=== PATIENT | male | born 1960 | race Caucasian/White ===

== ENCOUNTER 2023-03-31 06:31 | Day surgery (SDC) | payer BC ==
[~2023-03-31] VITALS: Ht 182.9 cm; Wt 93.4 kg
[2023-03-31 07:58] VITALS: O2SAT 100
[2023-03-31] MEDS ORDERED: ONDANSETRON HCL 4 MG/2 ML VIAL IVP PRN (09:00)
[2023-03-31] MEDS ORDERED: KETOROLAC TROMETHAMINE 30 MG VIAL IVP PRN (09:00)
[2023-03-31] MEDS ORDERED: HYDROmorphone 1 MG/ML INJ. CARTRIDGE IVP PRN ×2 (09:00→09:45)
[2023-03-31] MEDS ORDERED: LR 1,000 ML IV SCH (09:00)
[2023-03-31] MEDS ORDERED: ePHEDrine sulfate 50 MG/ML VIAL ONE (09:45)
[2023-03-31] MEDS ORDERED: PROPOFOL 200MG/ 20ML VIAL (DIPRIVAN) IV ONE (09:45)
[2023-03-31] MEDS ORDERED: MIDAZOLAM HCL 5 MG/ML VIAL (VERSED) IV ONE (09:45)
[2023-03-31] MEDS ORDERED: NS IRRIG SOLN 1000 ML IR ONE (09:45)
[2023-03-31] MEDS ORDERED: KETOROLAC TROMETHAMINE 30 MG VIAL ONE (09:45)
[2023-03-31] MEDS ORDERED: ONDANSETRON HCL 4 MG/2 ML VIAL ONE (09:45)
[2023-03-31] MEDS ORDERED: SEVOFLURANE 15 MIN GAS INH ONE (09:45)
[2023-03-31] MEDS ORDERED: METOCLOPRAMIDE HCL 10 MG/2 ML VIAL ONE (09:45)
[2023-03-31] MEDS ORDERED: LR 1,000 ML IV.SOLN IV ONE (09:45)
[2023-03-31] MEDS ORDERED: ROCURONIUM BROMIDE 10 MG/ML (ZEMURON) ONE (09:45)
[2023-03-31] MEDS ORDERED: fentaNYL CITRATE/PF 100 MCG/2 ML AMP ONE (09:45)
[2023-03-31] MEDS ORDERED: LIDOCAINE/EPI 1% 1:100000 20 ML VIAL ONE (09:45)
[2023-03-31] MEDS ORDERED: BUPIVACAINE /PF 0.25% 30 ML VIAL INJ ONE (09:45)
[2023-03-31 11:30] VITALS: BP_SYST 130; PULSE 50; RESP 20
== END 2023-03-31 11:25 | disposition home or self-care (01) ==
LOC: SDS 06:31 → SMU 06:32 → SDS 11:25
PROVIDERS: ATTEND Surgery
DX: K42.9 Umbilical hernia without obstruction or gangrene (principal); I10 Essential (primary) hypertension; M17.12 Unilateral primary osteoarthritis, left knee
CPT/HCPCS: 87081; 49591; 88302; J3490; J1885; J2765; J2250; J2405; J2704; J3010; J7120; C1781